=== PATIENT | female | born 1980 | race Caucasian/White ===

== ENCOUNTER → 2018-03-14 | Day surgery (SDC) | payer MEDICAID ==
[~2018-03-14] MED LIST: ASPIRIN EC 325 MG TAB PO ONE; ATROPINE SULFATE 1 MG/10 ML SYR IVP PRN; DIAZEPAM 5 MG TAB PO ONE; FAMOTIDINE 20 MG TAB PO ONE; HYDROCODONE/APAP 5/325 TAB PO PRN; IOPAMIDOL (ISOVUE-370) 150 ML BTL IV ONE; LIDOCAINE 1% 300 MG/30 ML SDV ONE; MIDAZOLAM 2 MG/2 ML VIAL ONE; NS 1,000 ML IV ONE; ONDANSETRON 4 MG/2 ML VIAL IVP PRN; diphenhydrAMINE 25 MG CAP PO ONE; fentaNYL 100 MCG/2 ML INJ ONE
--- NOTE | 2018-03-14 08:52 | CPEKG ---
Heart Rate: 81 RR Interval: 741 P-R Interval: 120 QRSD Interval: 80 QT Interval: 380 QTC Interval: 441 P Nerinx: 35 QRS Nerinx: -8 T Wave Nerinx: 25 EKG Severity - NORMAL ECG - EKG Impression: SINUS RHYTHM Electronically Signed By: Herb Aguilar 14-Mar-2018 12:55:35
[2018-03-14 09:07] LABS: PLATELET COUNT 264 10^3/uL (150-400)
--- NOTE | 2018-03-14 09:10 | PDPROPOC ---
Sedation Plan of Care Sedation Plan of Care: vital signs stable, mental status noted, patient educated of risks, benefits, alternatives ASA Classification: ASA 1 Planned drugs: fentanyl, midazolam Mallampati Score: Class 2 Mallampati Reference Image: Patient passed 3-3-2 rule?: Yes
--- NOTE | 2018-03-14 09:10 | PDHPUP ---
History & Physical Update H&P update statement: This history and physical update is based on an assessment of the patient which was completed after admission or registration (within 24 hours), but prior to the surgery/procedure. H&P update: H&P reviewed & patient examined, no change in patient's condition since H&P completed
[2018-03-14 09:15] LABS: INR 0.93 (0.83-1.16); PROTIME(PATIENT) 12.7 SEC (12.0-15.0)
--- NOTE | 2018-03-14 11:31 | PDDXCAT ---
Diagnostic Cath Note - . Date: 03/14/18 Professor Of Genetics: Peter Indication: other (Chest pain, dyspnea on exertion, and equivocal stress test.) - Procedure Access: right groin Procedure: left heart catheterization, coronary angiography, left ventriculogram , right heart catheterization - Materials Left Heart Cath size: 6F Left Heart Cath materials: standard multipack (JL4, JR4, pigtail) Right Heart Cath size: 7F Right Heart Cath materials: PWP catheter - Findings-Left Heart Catheterization LM: Angiographically normal. LAD: Angiographically normal. LCX: Angiographically normal. RCA: Angiographically normal. EDP: 22 mmHg LVEF: 50% Wall motion: No regional variation in contractility. - Findings-Right Heart Catheterization RA: 14 mmHg RV: 35/12 mmHg PA: 34/17/24 mmHg O2 sat 70.0% PAOP: 20 mmHg AO: 129/77/98 mmHg O2 sat 94.0% CO: 3.9 L/min CI: 2.0 L/min/sq mtr Complications: None Closure method: Angioseal Patient Problems: Problems Problem Status Onset Abdominal pain Acute Acute Vomiting Acute
== END | disposition home or self-care (01) ==
LOC: FCATH 08:29
PROVIDERS: ATTEND Internal Medicine Interventional Cardiology
PROC: B2151ZZ Fluoroscopy of Left Heart using Low Osmolar Contrast (ICD-10-PCS; principal; 2018-03-14)
PROC: 4A023N8 Measurement of Cardiac Sampling and Pressure, Bilateral, Percutaneous Approach (ICD-10-PCS; principal; 2018-03-14)
PROC: B2111ZZ Fluoroscopy of Multiple Coronary Arteries using Low Osmolar Contrast (ICD-10-PCS; principal; 2018-03-14)
DX: R07.9 Chest pain, unspecified (principal); R94.39 Abnormal result of other cardiovascular function study; R06.09 Other forms of dyspnea; J45.30 Mild persistent asthma, uncomplicated; F32.9 Major depressive disorder, single episode, unspecified; F15.21 Other stimulant dependence, in remission; F10.21 Alcohol dependence, in remission; Z79.899 Other long term (current) drug therapy; Z80.3 Family history of malignant neoplasm of breast; Z82.49 Family history of ischemic heart disease and other diseases of the circulatory system
CPT/HCPCS: C1760; J1644; J2250; J3010; Q9967